=== PATIENT | female | born 1990 | race Caucasian/White ===

== ENCOUNTER → 2017-09-30 | Outpatient (CLI) | payer BC, MEDICAID | END | disposition home or self-care (01) | LOC: CFH 15:36 | PROVIDERS: ATTEND Student in an Organized Health Care Education/Training Program | DX: R19.09 Other intra-abdominal and pelvic swelling, mass and lump (principal) | CPT/HCPCS: 76857 ==

== ENCOUNTER 2017-11-05 00:28 | Inpatient (IN) | payer BC, MEDICAID ==
[~2017-11-05] VITALS: Ht 170.2 cm; Wt 93.0 kg
[2017-11-05] MEDS ORDERED: NEWBORN KIT ONE ×3 (00:55→01:18)
[2017-11-05] MEDS ORDERED: OXYTOCIN 30U/ 0.9% NaCL 500ML 500 ML ONE ×2 (00:55→14:10)
[2017-11-05] MEDS ORDERED: OXYTOCIN 30U/ 0.9% NaCL 500ML 500 ML IV ONE (00:56)
[2017-11-05] MEDS ORDERED: D5%-LACTATED RINGERS 1,000 ML IV SCH (00:56)
[2017-11-05] MEDS ORDERED: CALCIUM CARBONATE 500 MG TAB.CHEW PO PRN (01:00)
[2017-11-05] MEDS ORDERED: SODIUM CITRATE/CITRIC ACID 30 ML UDC PO PRN (01:00)
[2017-11-05] MEDS ORDERED: ONDANSETRON 2MG/ML, 2ML IVPush PRN (01:00)
[2017-11-05] MEDS ORDERED: FENTANYL PF 100 MCG/2ML IVPush PRN (01:00)
[2017-11-05] MEDS ORDERED: FENTANYL PF 100 MCG/2ML IV PRN (01:00)
[2017-11-05] MEDS ORDERED: TERBUTALINE 1 MG/ML, 1ML IVPush PRN (01:00)
[2017-11-05] MEDS ORDERED: METOCLOPRAMIDE 5 MG/ML, 2ML IVPush PRN (01:00)
[2017-11-05] MEDS ORDERED: CLINDAMYCIN PMX 900MG/50ML 50 ML ONE ×2 (01:02→08:57)
[2017-11-05] MEDS: CLINDAMYCIN PMX 900MG/50ML 50 ML IVPB SCH ×2 (01:11→09:01)
[2017-11-05] MEDS: LACTATED RINGERS 1,000 ML IV SCH ×2 (01:11→14:14)
[2017-11-05 01:20] VITALS: BP 127/71
[2017-11-05] MEDS ORDERED: PLEASE ENTER ALLERGIES MC SCH (01:30)
[2017-11-05 02:02] LABS: BASOPHILS # (AUTO) 0.02 x10^3/uL (0-0.1); BASOPHILS % (AUTO) 0 % (0-1); EOSINOPHILS # (AUTO) 0.05 x10^3/uL (0-0.4); EOSINOPHILS % (AUTO) 1 % (1-7); LYMPHOCYTES # (AUTO) 1.64 x10^3/uL (1-3.4); LYMPHOCYTES % (AUTO) 23 % (22-44); MD NO; MEAN CORPUSCULAR HEMOGLOBIN 30.1 pg (27.0-34.8); MEAN CORPUSCULAR HGB CONC 34.4 g/dL (32.4-35.8); MEAN CORPUSCULAR VOLUME 87.5 fL (80-100); MONOCYTES # (AUTO) 0.61 x10^3/uL (0.2-0.8); MONOCYTES % (AUTO) 9 % (2-9); NEUTROPHILS % (AUTO) 68 % (42-75); PLATELET COUNT 150 x10^3/uL (130-400); RED BLOOD COUNT 3.63 x10^6/uL (3.82-5.3); RED CELL DISTRIBUTION WIDTH 14.6 % (9.6-15.2)
[2017-11-05] MEDS ORDERED: TERBUTALINE 1 MG/ML, 1ML ONE (04:49)
[2017-11-05 07:30] VITALS: BP 132/83
[2017-11-05] MEDS ORDERED: LIDOCAINE 1%, 50ML ONE (09:56)
[2017-11-05] MEDS ORDERED: MISOPROSTOL 200 MCG TABLET ONE (09:57)
[2017-11-05] MEDS ORDERED: FENTANYL/BUPIV./NS/PF 250 ML EPIDCONT SCH ×2 (10:40→11:43)
[2017-11-05] MEDS ORDERED: FENTANYL PF 500 MCG, BUPIVACAINE/PF 0.5%, 30ML 62.5 ML in SODIUM CHLORIDE 0.9% 177.5 ML EPIDCONT SCH (11:00)
[2017-11-05] MEDS ORDERED: LACTATED RINGERS 1,000 ML IVBOLUS PRN ×2 (11:00→12:00)
[2017-11-05] MEDS ORDERED: FENTANYL PF 100 MCG/2ML ONE (11:26)
[2017-11-05] MEDS ORDERED: LACTATED RINGERS 1,000 ML IV SCH (11:43)
[2017-11-05] MEDS ORDERED: EPHEDRINE 50 MG/ML, 1ML IVPush PRN (12:00)
[2017-11-05] MEDS ORDERED: NALOXONE 0.4 MG/ML, 1ML IVPush PRN (12:00)
[2017-11-05] MEDS: OXYTOCIN 30U/ 0.9% NaCL 500ML 500 ML IV SCH ×2 (12:43→14:13)
[2017-11-05] MEDS ORDERED: IBUPROFEN 600 MG TABLET PO PRN (13:00)
[2017-11-05] MEDS ORDERED: OXYcodone/APAP 5/325MG TABLET PO PRN (13:00)
[2017-11-05] MEDS ORDERED: BISACODYL 10 MG SUPP PR PRN (13:00)
[2017-11-05] MEDS ORDERED: GLYCERIN ADULT SUPP PR PRN (13:00)
[2017-11-05] MEDS ORDERED: CARBOPROST TROMETHAMINE 250 MCG/ML, 1ML IM PRN (13:00)
[2017-11-05] MEDS ORDERED: MISOPROSTOL 200 MCG TABLET PO PRN (13:00)
[2017-11-05] MEDS ORDERED: IBUPROFEN 800 MG TABLET PO PRN (13:00)
[2017-11-05] MEDS ORDERED: ONDANSETRON 2MG/ML, 2ML IV PRN (13:00)
[2017-11-05] MEDS ORDERED: ACETAMINOPHEN 325 MG TABLET PO PRN (13:00)
[2017-11-05] MEDS ORDERED: METOCLOPRAMIDE 5 MG/ML, 2ML IV PRN (13:00)
[2017-11-05] MEDS ORDERED: METHYLERGONOVINE 0.2 MG/ML IM PRN (13:00)
[2017-11-05 15:00] VITALS: BP 119/81
[2017-11-05] MEDS: OXYcodone/APAP 5/325MG TABLET PO PRN (16:39)
[2017-11-05 19:35] VITALS: BP 119/80
[2017-11-05 21:01] LABS: BASOPHILS # (AUTO) 0.01 x10^3/uL (0-0.1); BASOPHILS % (AUTO) 0 % (0-1); EOSINOPHILS # (AUTO) 0.02 x10^3/uL (0-0.4); EOSINOPHILS % (AUTO) 0 % (1-7); LYMPHOCYTES # (AUTO) 1.26 x10^3/uL (1-3.4); LYMPHOCYTES % (AUTO) 13 % (22-44); MD SCAN; MEAN CORPUSCULAR HEMOGLOBIN 30.4 pg (27.0-34.8); MEAN CORPUSCULAR HGB CONC 34.3 g/dL (32.4-35.8); MEAN CORPUSCULAR VOLUME 88.6 fL (80-100); MEAN PLATELET VOLUME 10.1 fL (7.4-10.4); MONOCYTES % (AUTO) 7 % (2-9); NEUTROPHILS # (AUTO) 7.72 x10^3/uL (1.8-6.8); NEUTROPHILS % (AUTO) 80 % (42-75); PLATELET COUNT 142 x10^3/uL (130-400); RED BLOOD COUNT 3.66 x10^6/uL (3.82-5.3); RED CELL DISTRIBUTION WIDTH 14.9 % (9.6-15.2)
[2017-11-06 00:10] VITALS: BP 127/79
[2017-11-06] MEDS: DOCUSATE 100 MG CAPSULE PO PRN ×2 (00:17→07:53)
[2017-11-06] MEDS: OXYcodone/APAP 5/325MG TABLET PO PRN ×2 (00:17→05:06)
[2017-11-06 04:00] VITALS: BP 116/72
[2017-11-06 07:05] VITALS: BP 131/77
[2017-11-06] MEDS ORDERED: PRENATAL VIT/IRON/FA 1 EACH TABLET PO SCH (09:00)
[2017-11-06 11:50] VITALS: BP 125/87
[2017-11-06] MEDS ORDERED: IBUP-1222 PO (14:21)
[2017-11-06] MEDS ORDERED: OXYC-302 PO (14:22)
== END 2017-11-06 14:50 | disposition home or self-care (01) | DRG 775 ==
LOC: LDOP 00:28 → LDIP 00:56 → 2NW 14:55
PROVIDERS: ADMIT Student in an Organized Health Care Education/Training Program; ATTEND Student in an Organized Health Care Education/Training Program
PROC: 10E0XZZ Delivery of Products of Conception, External Approach (ICD-10-PCS; principal; 2017-11-05)
PROC: 0UQMXZZ Repair Vulva, External Approach (ICD-10-PCS; 2017-11-05)
PROC: 3E0R3BZ Introduction of Anesthetic Agent into Spinal Canal, Percutaneous Approach (ICD-10-PCS; 2017-11-05)
PROC: 00HU33Z Insertion of Infusion Device into Spinal Canal, Percutaneous Approach (ICD-10-PCS; 2017-11-05)
DX: O99.824 Streptococcus B carrier state complicating childbirth (principal); B00.9 Herpesviral infection, unspecified; O70.0 First degree perineal laceration during delivery; Z37.0 Single live birth; Z3A.39 39 weeks gestation of pregnancy; Z88.0 Allergy status to penicillin
CPT/HCPCS: 36415; 85025; 86850; 86900; J3010; J2590; J7120

== ENCOUNTER 2019-06-25 18:22 | Outpatient (CLI) | payer MEDICAID ==
[~2019-06-25] VITALS: Ht 170.2 cm; Wt 98.0 kg
[~2019-06-25 18:22] MED LIST: IBUP-1222 PO; OXYC-302 PO
[2019-06-25 18:44] VITALS: BP 111/77
[2019-06-25] MEDS ORDERED: PREN1TAB60 PO (18:44)
[2019-06-25] MEDS ORDERED: VALA500T4 PO (18:44)
== END 2019-06-25 20:26 | disposition home or self-care (01) ==
LOC: LDOP 18:22
PROVIDERS: ATTEND Student in an Organized Health Care Education/Training Program
DX: Z34.93 Encounter for supervision of normal pregnancy, unspecified, third trimester (principal); Z3A.39 39 weeks gestation of pregnancy
CPT/HCPCS: 59025; 84112; 99211; G0463

== ENCOUNTER 2019-06-30 00:35 | Inpatient (IN) | payer MEDICAID ==
[~2019-06-30] VITALS: Ht 170.2 cm; Wt 96.4 kg
[~2019-06-30 00:35] MED LIST changes: +PREN1TAB60 PO; +VALA500T4 PO
[2019-06-30] MEDS ORDERED: D5%-LACTATED RINGERS 1,000 ML IV SCH (06:27)
[2019-06-30] MEDS ORDERED: OXYTOCIN 30U/ 0.9% NaCL 500ML 500 ML IV ONE (06:27)
[2019-06-30] MEDS ORDERED: FENTANYL PF 100 MCG/2ML IV PRN (06:30)
[2019-06-30] MEDS: LACTATED RINGERS 1,000 ML IV SCH ×2 (06:30→14:20)
[2019-06-30] MEDS ORDERED: TERBUTALINE 1 MG/ML, 1ML SQ PRN (06:30)
[2019-06-30] MEDS ORDERED: CALCIUM CARBONATE 500 MG TAB.CHEW PO PRN (06:30)
[2019-06-30] MEDS ORDERED: TERBUTALINE 1 MG/ML, 1ML IVPush PRN (06:30)
[2019-06-30] MEDS ORDERED: ONDANSETRON 2MG/ML, 2ML IVPush PRN (06:30)
[2019-06-30] MEDS ORDERED: NEWBORN KIT ONE (06:43)
[2019-06-30] MEDS ORDERED: OXYTOCIN 30U/ 0.9% NaCL 500ML 500 ML IV PRN (06:48)
[2019-06-30 07:09] LABS: BASOPHILS # (AUTO) 0.01 x10^3/uL (0-0.1); BASOPHILS % (AUTO) 0 % (0-1); EOSINOPHILS # (AUTO) 0.01 x10^3/uL (0-0.4); EOSINOPHILS % (AUTO) 0 % (1-7); LYMPHOCYTES # (AUTO) 1.67 x10^3/uL (1-3.4); LYMPHOCYTES % (AUTO) 22 % (22-44); MD NO; MEAN CORPUSCULAR HEMOGLOBIN 28.3 pg (27.0-34.8); MEAN CORPUSCULAR HGB CONC 32.7 g/dL (32.4-35.8); MEAN CORPUSCULAR VOLUME 86.5 fL (80-100); MEAN PLATELET VOLUME 9.3 fL (7.4-10.4); MONOCYTES # (AUTO) 0.54 x10^3/uL (0.2-0.8); MONOCYTES % (AUTO) 7 % (2-9); NEUTROPHILS # (AUTO) 5.39 x10^3/uL (1.8-6.8); NEUTROPHILS % (AUTO) 71 % (42-75); PLATELET COUNT 185 x10^3/uL (130-400); RED BLOOD COUNT 3.91 x10^6/uL (3.82-5.3); RED CELL DISTRIBUTION WIDTH 13.6 % (9.6-15.2)
[2019-06-30] MEDS ORDERED: VANCOMYCIN PMX 1GM/200ML 200 ML IVPB SCH (07:30)
[2019-06-30] MEDS ORDERED: LIDOCAINE 1%, 20ML ONE (08:10)
[2019-06-30] MEDS ORDERED: MISOPROSTOL 200 MCG TABLET ONE (08:10)
[2019-06-30] MEDS ORDERED: OXYTOCIN 30U/ 0.9% NaCL 500ML 500 ML ONE ×2 (08:10→19:17)
[2019-06-30] MEDS ORDERED: FENTANYL/BUPIV./NS/PF 250 ML EPIDCONT SCH (16:26)
[2019-06-30] MEDS ORDERED: FENTANYL PF 100 MCG/2ML ONE ×2 (17:00→17:50)
[2019-06-30] MEDS: FENTANYL PF 100 MCG/2ML IVPush PRN ×2 (17:02→17:54)
[2019-06-30] MEDS ORDERED: BUPIVACAINE 0.25% ONE (17:27)
[2019-06-30] MEDS: OXYTOCIN 30U/ 0.9% NaCL 500ML 500 ML IV SCH (18:16)
[2019-06-30] MEDS ORDERED: OXYcodone/APAP 5/325MG TABLET PO PRN ×2 (18:30)
[2019-06-30] MEDS ORDERED: DOCUSATE 100 MG CAPSULE PO PRN (18:30)
[2019-06-30] MEDS ORDERED: ACETAMINOPHEN 325 MG TABLET PO PRN (18:30)
[2019-06-30] MEDS ORDERED: SIMETHICONE 80 MG CHEW TAB PO PRN (18:30)
[2019-06-30] MEDS ORDERED: MISOPROSTOL 200 MCG TABLET PR PRN (18:30)
[2019-06-30] MEDS ORDERED: TRANEXAMIC ACID 100 MG/ML, 10ML IV ONE (18:30)
[2019-06-30] MEDS ORDERED: METHYLERGONOVINE 0.2 MG/ML IM PRN (18:30)
[2019-06-30] MEDS ORDERED: ONDANSETRON 2MG/ML, 2ML IV PRN (18:30)
[2019-06-30 20:15] VITALS: BP 128/78
[2019-07-01] VITALS: BP 106/63
[2019-07-01 02:10] LABS: BASOPHILS # (AUTO) 0.04 x10^3/uL (0-0.1); BASOPHILS % (AUTO) 0 % (0-1); EOSINOPHILS # (AUTO) 0.02 x10^3/uL (0-0.4); EOSINOPHILS % (AUTO) 0 % (1-7); LYMPHOCYTES # (AUTO) 1.59 x10^3/uL (1-3.4); LYMPHOCYTES % (AUTO) 13 % (22-44); MD NO; MEAN CORPUSCULAR HEMOGLOBIN 28.6 pg (27.0-34.8); MEAN CORPUSCULAR VOLUME 86.8 fL (80-100); MEAN PLATELET VOLUME 9.4 fL (7.4-10.4); MONOCYTES # (AUTO) 0.81 x10^3/uL (0.2-0.8); MONOCYTES % (AUTO) 7 % (2-9); NEUTROPHILS # (AUTO) 10.15 x10^3/uL (1.8-6.8); NEUTROPHILS % (AUTO) 81 % (42-75); PLATELET COUNT 177 x10^3/uL (130-400); RED BLOOD COUNT 4.07 x10^6/uL (3.82-5.3)
[2019-07-01] MEDS: OXYTOCIN 30U/ 0.9% NaCL 500ML 500 ML IV SCH ×2 (03:40→14:16)
[2019-07-01 04:53] VITALS: BP 114/73
[2019-07-01] MEDS: IBUPROFEN 600 MG TABLET PO PRN ×3 (05:39→17:23)
[2019-07-01 07:35] VITALS: BP 102/69
[2019-07-01] MEDS ORDERED: PRENATAL VIT/IRON/FA 1 EACH TABLET PO SCH (09:00)
[2019-07-01] MEDS ORDERED: IBUP-1222 PO (10:14)
== END 2019-07-01 18:15 | disposition home or self-care (01) | DRG 560 ==
LOC: LDIP 06:03 → 2NW 20:12
PROVIDERS: ADMIT Student in an Organized Health Care Education/Training Program; ATTEND Student in an Organized Health Care Education/Training Program
PROC: 10E0XZZ Delivery of Products of Conception, External Approach (ICD-10-PCS; principal; 2019-06-30)
PROC: 10907ZC Drainage of Amniotic Fluid, Therapeutic from Products of Conception, Via Natural or Artificial Opening (ICD-10-PCS; 2019-06-30)
PROC: 3E033VJ Introduction of Other Hormone into Peripheral Vein, Percutaneous Approach (ICD-10-PCS; 2019-06-30)
DX: O99.824 Streptococcus B carrier state complicating childbirth (principal); O98.52 Other viral diseases complicating childbirth; B00.9 Herpesviral infection, unspecified; Z37.0 Single live birth; Z3A.40 40 weeks gestation of pregnancy; Z88.1 Allergy status to other antibiotic agents
CPT/HCPCS: 36415; 85025; 86592; 86850; 86900; G0378; J3010; J3370; J2590; J7120